=== PATIENT | male | born 1980 | race Caucasian/White ===

== ENCOUNTER 2023-11-24 19:32 | Emergency (ER) | payer BC ==
[2023-11-24] MEDS: Lidocaine 1% 5 ML VIAL INJECT ONE (20:20)
[2023-11-24] MEDS: Bacitracin Oint 1 GM U/D Packet TOP ONE (20:20)
[2023-11-24] MEDS: Diphtheria,Pertussis(Acell),Tetanus Vaccine 0.5 ML Syringe IM ONE (20:21)
== END 2023-11-24 21:20 | disposition home or self-care (01) ==
LOC: JP.ED 19:32
DX: S81.812A Laceration without foreign body, left lower leg, initial encounter (principal); I10 Essential (primary) hypertension; E78.00 Pure hypercholesterolemia, unspecified; Z23 Encounter for immunization; Z79.899 Other long term (current) drug therapy; W26.8XXA Contact with other sharp object(s), not elsewhere classified, initial encounter
CPT/HCPCS: 12002; 90471; 90715; 99283-25